=== PATIENT | male | born 1965 | race Caucasian/White ===

== ENCOUNTER 2019-01-28 07:40 | Emergency (ER) | payer MEDICAID, MEDICARE ==
--- NOTE | 2019-01-28 07:52 | EDM.PDOC ---
ED HPI GENERAL MEDICAL PROBLEM - General Chief Complaint: Neuro Symptoms/Deficits Stated Complaint: Fall; Left side weakness/deficit Time Seen by Provider: 01/28/19 07:40 Source of Information: Reports: EMS Notes Reviewed, Family, RN, RN Notes Reviewed - History of Present Illness INITIAL COMMENTS - FREE TEXT/NARRATIVE: Patient is brought to the ED at [facility] via EMS for possible [place]. According to the patient's mother, patient when to bed around 10pm last night. She heard the patient around 6am this morning in the bathroom and thought she heard the patient fall. He attempted to go outside to the [facility] to smoke, when he fell again, she then called EMS. Upon EMS arrival, patient was laying on the cough. They were told by the patient's mother he fell probably 3 times. IV was started. Arrival to ER, patient's left side was very non-purposeful. He was able to answer with one word, but very garble speech. Completely unable to move left side. Severe right gaze. Move left side ok. Unable to lift right leg or right arm. No hand grasp right side. Normal hand grasp left side. C-collar in place upon arrival. Does say yes when asked if having pain, but unable to verbalized where. See NIH documentation. Onset: Today Onset Date: 01/28/19 Onset Time: 06:00 - Related Data Allergies Allergy/AdvReac Type Severity Reaction Status Date / Time Unable to Assess Allergy Unverified 01/28/19 08:29 Home Meds: Home Meds . [Unable to Verify Home Med List] 01/28/19 [History] ED ROS GENERAL - Review of Systems Review Of Systems: Unable To Obtain ED EXAM, NEURO - Physical Exam Exam: See Below (See NIH document) Exam Limited By: Physical Impairment General Appearance: Alert, No Apparent Distress Eye Exam: Bilateral Eye: Other (forced right gaze; slow reaction 2mm) Ears: Normal External Exam, Normal Canal, Normal TMs Nose: Normal Inspection Throat/Mouth: Normal Inspection, Normal Oropharynx, No Airway Compromise Head Exam: Atraumatic, Normocephalic Neck: Supple Respiratory/Chest: No Respiratory Distress, Lungs Clear, Normal Breath Sounds Cardiovascular: Normal Peripheral Pulses, Regular Rate, Rhythm GI/Abdominal: Normal Bowel Sounds, Soft, Non-Tender Neurological: No Response to Pain (Left side), Abnormal Finger to Nose, Abnormal Light Touch, Abnormal Motor, Abnormal Pin Prick, Abn 2 Pt Discrimination, Straight Leg Raise (L) (ok) Skin Exam: Warm, Dry, Intact, Normal Color EKG INTERPRETATION EKG Date: 01/28/19 Time: 08:14 Rhythm: NSR Rate (Beats/Min): 64 [place]: Normal P-Wave: Present QRS: Normal ST-T: Normal QT: Normal NC/PQ Interval: 0.17 Comparison: NA - No Prior EKG EKG Interpretation Comments: 1. NSR *Q Meaningful Use (ADM) - VTE *Q VTE Mechanical Contraindications *Q: At Risk for Falls Course - Orders/Labs/Meds Orders: Active Orders 24 hr Category Date Time Status EKG 12 Lead [EKG Documentation Completion] [RC] STAT Care 01/28/19 08:12 Active Cervical Spine wo Cont [CT] Stat Exams 01/28/19 07:53 Taken Head wo Cont [CT] Stat Exams 01/28/19 07:53 Taken COMPREHENSIVE METABOLIC PN,CMP [CHEM] Stat Lab 01/28/19 07:52 Ordered MAGNESIUM [CHEM] Stat Lab 01/28/19 07:52 Ordered Sodium Chloride 0.9% [Normal Saline] 1,000 ml Med 01/28/19 07:54 Active IV ONETIME Sodium Chloride 0.9% [Saline Flush] Med 01/28/19 07:54 Active 10 ml FLUSH ASDIRECTED PRN hydrALAZINE [Apresoline] Med 01/28/19 08:33 Once 10 mg IVPUSH ONETIME ONE Peripheral IV Insertion Adult [OM.PC] Routine Oth 01/28/19 07:54 Ordered Medication Orders Hydralazine HCl (Apresoline) 10 mg IVPUSH ONETIME ONE Stop: 01/28/19 08:34 Sodium Chloride (Normal Saline) 1,000 mls @ 999 mls/hr IV ONETIME ONE Stop: 01/28/19 08:54 Last Admin: 01/28/19 08:33 Dose: 999 mls/hr Sodium Chloride (Saline Flush) 10 ml FLUSH ASDIRECTED PRN PRN Reason: Keep Vein Open Labs: Laboratory Tests 01/28/19 01/28/19 Range/Units 08:07 08:07 WBC 9.0 (4.0-10.0) x10^3/uL RBC 4.68 (4.5-6.0) x10^6/uL Hgb 14.9 (14.0-18.0) g/dL Hct 43.1 (40.0-52.0) % MCV 92.1 (78.0-93.0) fL MCH 31.8 (26.0-32.0) pg MCHC 34.6 (32.0-36.0) g/dL RDW Coeff of Stacy 12.8 (10.0-15.0) % Plt Count 189 (130-400) x10^3/uL Neut % (Auto) 76.1 (50.0-80.0) % Lymph % (Auto) 15.8 L (25.0-50.0) % [place] % (Auto) 5.4 (2.0-11.0) % Eos % (Auto) 2.3 (0.0-4.0) % Baso % (Auto) 0.4 (0.2-1.2) % PT 10.6 (10.0-12.8) SEC INR 0.9 L (2.0-3.5) Meds: Medications Generic Name Dose Route Start Last Admin Trade Name Freq PRN Reason Stop Dose Admin Hydralazine HCl 10 mg 01/28/19 08:33 Apresoline IVPUSH 01/28/19 08:34 ONETIME ONE Sodium Chloride 1,000 mls @ 999 mls/hr 01/28/19 07:54 01/28/19 08:33 Normal Saline IV 01/28/19 08:54 999 mls/hr ONETIME ONE Administration Sodium Chloride 10 ml 01/28/19 07:54 Saline Flush FLUSH ASDIRECTED PRN Keep Vein Open Departure - Departure Time of Disposition: 08:35 Disposition: DC/Tfer to Acute Hospital 02 Clinical Impression: CVA (cerebral vascular accident) Qualifiers: CVA mechanism: unspecified Qualified Code(s): I63.9 - Cerebral infarction, unspecified - Discharge Information *PRESCRIPTION DRUG MONITORING PROGRAM REVIEWED*: Not Applicable *COPY OF PRESCRIPTION DRUG MONITORING REPORT IN PATIENT ETHAN: Not Applicable Forms: Interfacility Transfer [facility] ED Communication - ED Communication Date/Time Date: 01/28/19 Time Called: 08:20 - Discussed Case With (1) Discussed Case With (1): Outpatient Provider (Dr. Jackson, Neuro) - Discussed Case With (2) Discussed Case With (2): Admitting Provider (Dr. Freedman) - Conversation Summary Admitting Provider Agreed to Patient's Admission: Yes - Problem List Review Problem List Initiated/Reviewed/Updated: Yes - My Orders Last 24 Hours: My Active Orders 01/28/19 07:52 COMPREHENSIVE METABOLIC PN,CMP [CHEM] Stat MAGNESIUM [CHEM] Stat 01/28/19 07:53 Cervical Spine wo Cont [CT] Stat Head wo Cont [CT] Stat 01/28/19 07:54 Sodium Chloride 0.9% [Normal Saline] 1,000 ml IV ONETIME Sodium Chloride 0.9% [Saline Flush] 10 ml FLUSH ASDIRECTED PRN Peripheral IV Insertion Adult [OM.PC] Routine 01/28/19 08:12 EKG 12 Lead [EKG Documentation Completion] [RC] STAT 01/28/19 08:33 hydrALAZINE [Apresoline] 10 mg IVPUSH ONETIME ONE - Assessment/Plan Last 24 Hours: My Active Orders 01/28/19 07:52 COMPREHENSIVE METABOLIC PN,CMP [CHEM] Stat MAGNESIUM [CHEM] Stat 01/28/19 07:53 Cervical Spine wo Cont [CT] Stat Head wo Cont [CT] Stat 01/28/19 07:54 Sodium Chloride 0.9% [Normal Saline] 1,000 ml IV ONETIME Sodium Chloride 0.9% [Saline Flush] 10 ml FLUSH ASDIRECTED PRN Peripheral IV Insertion Adult [OM.PC] Routine 01/28/19 08:12 EKG 12 Lead [EKG Documentation Completion] [RC] STAT 01/28/19 08:33 hydrALAZINE [Apresoline] 10 mg IVPUSH ONETIME ONE Assessment:: CVA Plan: Case discussed with Dr. Jackson and Dr. Freedman. Patient will be transferred to [facility]. Patient will be sent ALS ground. Mother and patient aware.
[2019-01-28] MEDS ORDERED: Sodium Chloride 0.9% 1,000 ML IV ONE (07:54)
[2019-01-28] MEDS ORDERED: Sodium Chloride 0.9% 10 ML Syringe FLUSH PRN (07:54)
[2019-01-28] MEDS ORDERED: hydrALAZINE 20 MG/ML SDV IVPUSH ONE (08:33)
[2019-01-28 08:35] LABS: ANION GAP 13.9 mmol/L (10-20); CHLORIDE,CL 105 mmol/L (98-107); SODIUM,NA 140 mmol/L (136-145)
--- NOTE | 2019-01-28 08:35 | CT ---
[id number] CT/CT Cervical Spine WO IV EXAM: NONCONTRAST CERVICAL SPINE CT INDICATION: Fall, possible cerebrovascular accident and left-sided collecting. COMPARISON: None. DISCUSSION: The vertebral bodies are normal in height and alignment. No fracture or suspicious osseous lesion is identified. Moderate degenerative disc disease C5-C6 through T1-T2 with milder changes at the remaining disc levels. Mild to moderate facet degeneration scattered throughout the cervical spine. IMPRESSION: 1. No evidence of acute cervical spine trauma. 2. Mild to moderate cervical spondylosis. Neo Carter MD 01/28/19 0833 Thank you for allowing us to participate in the care of your patient.
--- NOTE | 2019-01-28 08:42 | CT ---
[id number] CT/CT Head Stroke Protocol EXAM: NONCONTRAST HEAD CT INDICATION: Left-sided neglect with concern for cerebrovascular accident. COMPARISON: None. DISCUSSION: Overlying the left frontoparietal cerebral convexity there is a CSF density subdural collection measuring up to 13 mm in thickness that could represent a hygroma or chronic subdural hematoma. No acute hemorrhage is identified. There is up to 6 mm of rightward midline shift and mild effacement of the underlying sulci. Mild to moderate generalized atrophy. Appearing to arise from the right internal carotid artery bifurcation there is a 23 x 18 x 17 mm hyperdense oval mass consistent with an aneurysm. No acute territorial infarct or hydrocephalus. Mucosal retention cyst within the right maxillary sinus. IMPRESSION: 1. 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 2. 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 This results in mild effacement of the underlying sulci and about 6 mm of rightward midline shift. Neo Carter MD 01/28/19 0841 Thank you for allowing us to participate in the care of your patient.
== END 2019-01-28 08:42 | disposition short-term general hospital (02) ==
LOC: VM.ED 07:40
DX: I63.9 Cerebral infarction, unspecified (principal)
CPT/HCPCS: 70450; 72125; 80053; 83735; 85025; 85610; 93005; 93010; 96374; 99285-GF; 99291-25; J0360; J7030

== ENCOUNTER 2019-02-02 13:07 | Inpatient (IN) | payer MEDICARE ==
[2019-02-02] MEDS ORDERED: Ondansetron 4 MG Tab.DIS PO PRN (14:32)
[2019-02-02] MEDS ORDERED: Aluminum Hydroxide/Magnesium Hydroxide/Simethicone Susp 30 ML Cup PO PRN (14:32)
--- NOTE | 2019-02-02 14:48 | PCM.HP ---
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 Upon arrival to the ER, the patient had complete left side neglect, right eye gaze, and not able to speak. The patient was found to have a 2.2cm ICA aneurysm on CT. Patient was immediately transferred to [facility] in [place] for definitive treatment. Patient did not require any surgical intervention. Blood pressure had been an issue, so patient was started on Lisinopril and Amlodipine. Blood pressures seem to normalize. Patient was also started on atorvastatin for lipid control. Patient apparently did well during his hospital stay. Patient has some residual effects. Symptom Onset Date: 01/28/19 - Related Data Allergies/Adverse Reactions: Allergies Allergy/AdvReac Type Severity Reaction Status Date / Time Penicillins Allergy Unknown Other Verified 02/02/19 13:39 Home Medications: Home Meds Clopidogrel [Plavix] 75 mg PO DAILY 02/02/19 [History] Lisinopril 5 mg PO DAILY 02/02/19 [History] Nicotine [Nicotine Patch] 21 mg TD DAILY 02/02/19 [History] amLODIPine [Norvasc] 10 mg PO DAILY 02/02/19 [History] atorvaSTATin [Lipitor] 40 mg PO BEDTIME 02/02/19 [History] H&P Review of Systems - Review of Systems: Review Of Systems: See Below General: Denies: Fever, Chills Pulmonary: Denies: Shortness of Breath, Cough Cardiovascular: Denies: Chest Pain, Palpitations Gastrointestinal: Denies: Abdominal Pain, Nausea, Vomiting Skin: Reports: No Symptoms Neurological: Reports: Pre-Existing Deficit (Recent CVA 01/28/2019), Trouble Speaking, Difficulty Walking, Weakness, Gait Disturbance Exam - Exam Exam: See Below - Exam Quality Assessment: DVT Prophylaxis (on Plavix) General: Alert, Oriented, Cooperative Lungs: Clear to Auscultation, Normal Respiratory Effort Cardiovascular: Regular Rate, Regular Rhythm, Normal S1, Normal S2 GI/Abdominal Exam: Normal Bowel Sounds, Soft, Non-Tender Extremities: Normal Inspection Peripheral Pulses: 2+: Radial (L), Radial (R) Skin: Warm, Dry, Intact Neuro Extensive - Mental Status: Alert, Disorientation to Time, Opens Eyes to Commands Neuro Extensive - Motor, Sensory, Reflexes: Ataxia (Left crosses midline), Receptive Aphasia, Expressive Aphasia, Hemeplagia (L), Abnormal Finger to Nose, Abnormal Motor *Q Meaningful Use (ADM) - VTE *Q VTE Mechanical Contraindications *Q: At Risk for Falls - Problem List (1) CVA (cerebral vascular accident) SNOMED Code(s): 244450746 ICD Code: I63.9 - CEREBRAL INFARCTION, UNSPECIFIED Status: Acute Priority : High Current Visit: Yes Onset Date: ~01/28/19 Qualifiers: CVA mechanism: unspecified Qualified Code(s): I63.9 - Cerebral infarction, unspecified (2) Jose-neglect of left side SNOMED Code(s): 698086908 ICD Code: R41.4 - NEUROLOGIC NEGLECT SYNDROME Status: Acute Priority: High Current Visit: Yes Onset Date: ~01/28/19 (3) Spatial neglect SNOMED Code(s): 656927521, 459958697, 976787913 ICD Code: R41.89 - OTH SYMPTOMS AND SIGNS W COGNITIVE FUNCTIONS AND AWARENESS Status: Acute Priority: High Current Visit: Yes Onset Date: ~ 01/28/19 (4) Dysphagia SNOMED Code(s): 13620926, 565523065 ICD Code: R13.10 - DYSPHAGIA, UNSPECIFIED Status: Acute Priority: High Current Visit: Yes Onset Date: ~01/28/19 Qualifiers: Dysphagia type: unspecified Qualified Code(s): R13.10 - Dysphagia, unspecified (5) Expressive aphasia SNOMED Code(s): 312022612 ICD Code: R47.01 - APHASIA Status: Acute Priority: High Current Visit: Yes Onset Date: ~01/28/19 (6) Weakness SNOMED Code(s): 94626202 ICD Code: R53.1 - WEAKNESS Status: Acute Current Visit: Yes (7) Physical deconditioning SNOMED Code(s): 75339864175631 ICD Code: R53.81 - OTHER MALAISE Status: Acute Priority: Medium Current Visit: Yes (8) Essential hypertension SNOMED Code(s): 27591209 ICD Code: I10 - ESSENTIAL (PRIMARY) HYPERTENSION Status: Chronic Priority : Medium Current Visit: No (9) Mixed hyperlipidemia SNOMED Code(s): 283445640 ICD Code: E78.2 - MIXED HYPERLIPIDEMIA Status: Chronic Priority: Medium Current Visit: No (10) History of traumatic brain injury SNOMED Code(s): 18585291303075, 39072771122755 ICD Code: Z87.820 - PERSONAL HISTORY OF TRAUMATIC BRAIN INJURY Status: Chronic Current Visit: No (11) History of cerebral aneurysm repair SNOMED Code(s): 881303619 ICD Code: Z98.890 - OTHER SPECIFIED POSTPROCEDURAL STATES; Z86.79 - PERSONAL HISTORY OF OTHER DISEASES OF THE CIRCULATORY SYSTEM Status: Chronic Current Visit: No Problem List Initiated/Reviewed/Updated: Yes Orders Last 24hrs: Active Orders 24 hr Category Date Time Status Patient Status [ADT] Routine ADT 02/02/19 14:33 Active Antiembolic Devices [RC] PER UNIT ROUTINE Care 02/02/19 14:36 Active Communication Order [RC] DAILY Care 02/02/19 13:59 Active Height and Weight [RC] PER UNIT ROUTINE Care 02/02/19 14:34 Active Intake and Output [RC] 06,18 Care 02/02/19 14:34 Active May Shower [RC] SA Care 02/02/19 14:32 Active Oxygen Therapy [RC] PRN Care 02/02/19 14:33 Active Up to Chair [RC] 0730,1130,1730 Care 02/02/19 14:32 Active Vital Signs [RC] PER UNIT ROUTINE Care 02/02/19 14:33 Active Consult to Case Management/Stamps Or Coins Salesperson [CONS] Cons 02/02/19 14:32 Active Routine OT Evaluation and Treatment [CONS] Routine Cons 02/02/19 13:32 Active PT Evaluation and Treatment [CONS] Routine Cons 02/02/19 13:32 Active EAR MUFF ASSEMBLER Evaluation and Treatment [CONS] Routine Cons 02/02/19 13:32 Active Heart Healthy Diet [DIET] Diet 02/02/19 Dinner Active Acetaminophen [Tylenol] Med 02/02/19 14:32 Ordered 650 mg PO Q4H PRN Alum Hydrox/Mag Hydrox/Simeth [Mag-Al Plus] Med 02/02/19 14:32 Ordered 30 ml PO Q4H PRN Clopidogrel [Plavix] Med 02/03/19 08:00 Active 75 mg PO DAILY Lisinopril [Prinivil] Med 02/03/19 08:00 Active 5 mg PO DAILY Nicotine [Habitrol] Med 02/03/19 08:00 Active 21 mg TOP DAILY Ondansetron [Zofran ODT] Med 02/02/19 14:32 Ordered 4 mg PO Q6H PRN Polyethylene Glycol 3350 [MiraLAX] Med 02/02/19 14:32 Ordered 17 gm PO DAILY PRN Remove Patch Med 02/02/19 20:00 Active 1 ea TRDERM BEDTIME amLODIPine [Norvasc] Med 02/03/19 08:00 Active 10 mg PO DAILY atorvaSTATin [Lipitor] Med 02/02/19 20:00 Active 40 mg PO BEDTIME Antiembolic Hose [OM.PC] Routine Oth 02/02/19 14:32 Ordered Patient May [OM.PC] Click To Edit Oth 02/02/19 14:32 Ordered Code Status [Resuscitation Status] Routine Resus Stat 02/02/19 13:32 Ordered Medication Orders Acetaminophen (Tylenol) 650 mg PO Q4H PRN PRN Reason: Pain (Mild 1-3)/fever Al Hydroxide/Mg Hydroxide (Mag-Al Plus) 30 ml PO Q4H PRN PRN Reason: Nausea Amlodipine Besylate (Norvasc) 10 mg PO DAILY JOSE Atorvastatin Calcium (Lipitor) 40 mg PO BEDTIME [facility] Stop: 02/27/19 20:01 Clopidogrel Bisulfate (Plavix) 75 mg PO DAILY [facility] Stop: 02/19/19 08:01 Lisinopril (Prinivil) 5 mg PO DAILY [facility] Miscellaneous Information (Remove Patch) 1 ea TRDERM BEDTIME [facility] Stop: 02/27/19 20:01 Nicotine (Habitrol) 21 mg TOP DAILY [facility] Stop: 02/27/19 08:01 Ondansetron HCl (Zofran Odt) 4 mg PO Q6H PRN PRN Reason: nausea, able to take PO Polyethylene Glycol (Miralax) 17 gm PO DAILY PRN PRN Reason: Constipation Assessment/Plan Comment:: 53 yo male with a past medical history of HTN, high cholesterol, TBI, and cerebral aneurysm is admitted to the Swing Bed unit at [facility] for a diagnosis of CVA, HTN, High cholesterol, dysphagia, receptive/expressive aphagia , left neglect, spacial neglect. Will continue same discharge medication from [facility]. Consult PT/OT and Speech. Patient needs to be up for all meals. Will contact Neuro for blood pressure parameters. Patient is a full code. Patient does wish to be transferred to a higher level of care should the need arise. Patient very impulsive, so will use bed alarm. Will do nectar thick liquids for now until seen by Speech. I anticipate a very long stay for this patient on Swing Bed. Unclear at time of this admission the disposition, home vs. [facility]. Will work closely with therapies. Continue with Lisinopril and Amlodipine for now. ASA for 21 days, then stop. Continue Plavix lifelong. May discontinue Nicotine patch. No labs are due at this time. NOTE: This patient was seen and examined by me as an [facility] provider.
[2019-02-02] MEDS: atorvaSTATin 40 MG Tab PO SCH (20:40)
[2019-02-03] MEDS: amLODIPine 10 MG Tab PO SCH (08:16)
[2019-02-03] MEDS: Clopidogrel 75 MG Tab PO SCH (08:17)
[2019-02-03] MEDS: Nicotine 21 MG/24 Hr Patch TOP SCH (08:17)
[2019-02-03] MEDS: Lisinopril 5 MG Tab PO SCH (08:17)
[2019-02-03] MEDS: atorvaSTATin 40 MG Tab PO SCH (19:43)
[2019-02-04] MEDS: Nicotine 21 MG/24 Hr Patch TOP SCH (08:12)
[2019-02-04] MEDS: Clopidogrel 75 MG Tab PO SCH (08:12)
[2019-02-04] MEDS: amLODIPine 10 MG Tab PO SCH (08:13)
[2019-02-04] MEDS: Lisinopril 5 MG Tab PO SCH (08:13)
[2019-02-04] MEDS: atorvaSTATin 40 MG Tab PO SCH (19:52)
[2019-02-04] MEDS: Polyethylene Glycol 3350 Powder 17 GM Packet PO PRN (21:46)
[2019-02-05] MEDS: Nicotine 21 MG/24 Hr Patch TOP SCH (08:30)
[2019-02-05] MEDS: Lisinopril 5 MG Tab PO SCH (08:31)
[2019-02-05] MEDS: Clopidogrel 75 MG Tab PO SCH (08:31)
[2019-02-05] MEDS: amLODIPine 10 MG Tab PO SCH (08:31)
[2019-02-05] MEDS: atorvaSTATin 40 MG Tab PO SCH (20:39)
[2019-02-06] MEDS: Nicotine 21 MG/24 Hr Patch TOP SCH (07:49)
[2019-02-06] MEDS: Clopidogrel 75 MG Tab PO SCH (07:49)
[2019-02-06] MEDS: Polyethylene Glycol 3350 Powder 17 GM Packet PO PRN (07:49)
[2019-02-06] MEDS: amLODIPine 10 MG Tab PO SCH (07:49)
[2019-02-06] MEDS: Lisinopril 5 MG Tab PO SCH (07:49)
[2019-02-06] MEDS: atorvaSTATin 40 MG Tab PO SCH (20:26)
[2019-02-07] MEDS: amLODIPine 10 MG Tab PO SCH (08:16)
[2019-02-07] MEDS: Aspirin 81 MG Tab.EC PO SCH (08:16)
[2019-02-07] MEDS: Clopidogrel 75 MG Tab PO SCH (08:17)
[2019-02-07] MEDS: Lisinopril 5 MG Tab PO SCH (08:17)
[2019-02-07] MEDS: Nicotine 21 MG/24 Hr Patch TOP SCH (08:17)
[2019-02-07] MEDS: Omeprazole 20 MG Cap.CR PO SCH (15:36)
[2019-02-07] MEDS: Polyethylene Glycol 3350 Powder 17 GM Packet PO PRN (15:36)
[2019-02-07] MEDS: Acetaminophen 325 MG Tab PO PRN (15:36)
[2019-02-07] MEDS ORDERED: Docusate Sodium 100 MG Cap PO PRN (18:08)
[2019-02-07] MEDS: atorvaSTATin 40 MG Tab PO SCH (20:19)
[2019-02-08] MEDS: Omeprazole 20 MG Cap.CR PO SCH (06:12)
[2019-02-08] MEDS: Lisinopril 5 MG Tab PO SCH (08:52)
[2019-02-08] MEDS: Clopidogrel 75 MG Tab PO SCH (08:52)
[2019-02-08] MEDS: Nicotine 21 MG/24 Hr Patch TOP SCH (08:52)
[2019-02-08] MEDS: Aspirin 81 MG Tab.EC PO SCH (08:52)
[2019-02-08] MEDS: amLODIPine 10 MG Tab PO SCH (08:52)
[2019-02-08] MEDS: Docusate Sodium 100 MG Cap PO SCH (19:07)
[2019-02-08] MEDS: atorvaSTATin 40 MG Tab PO SCH (19:07)
[2019-02-09] MEDS: Omeprazole 20 MG Cap.CR PO SCH (06:06)
[2019-02-09] MEDS: Lisinopril 5 MG Tab PO SCH (08:24)
[2019-02-09] MEDS: Nicotine 21 MG/24 Hr Patch TOP SCH (08:25)
[2019-02-09] MEDS: Clopidogrel 75 MG Tab PO SCH (08:25)
[2019-02-09] MEDS: Docusate Sodium 100 MG Cap PO SCH ×2 (08:25→20:06)
[2019-02-09] MEDS: Aspirin 81 MG Tab.EC PO SCH (08:25)
[2019-02-09] MEDS: amLODIPine 10 MG Tab PO SCH (08:25)
[2019-02-09] MEDS: atorvaSTATin 40 MG Tab PO SCH (20:06)
[2019-02-10] MEDS: Omeprazole 20 MG Cap.CR PO SCH (06:52)
[2019-02-10] MEDS: Lisinopril 5 MG Tab PO SCH (08:47)
[2019-02-10] MEDS: Aspirin 81 MG Tab.EC PO SCH (08:47)
[2019-02-10] MEDS: Clopidogrel 75 MG Tab PO SCH (08:48)
[2019-02-10] MEDS: amLODIPine 10 MG Tab PO SCH (08:48)
[2019-02-10] MEDS: Docusate Sodium 100 MG Cap PO SCH ×3 (08:48→19:05)
[2019-02-10] MEDS: Nicotine 21 MG/24 Hr Patch TOP SCH (08:49)
[2019-02-10] MEDS: atorvaSTATin 40 MG Tab PO SCH ×2 (18:46→19:05)
[2019-02-11] MEDS: Docusate Sodium 100 MG Cap PO SCH ×2 (08:04→20:54)
[2019-02-11] MEDS: Aspirin 81 MG Tab.EC PO SCH (08:04)
[2019-02-11] MEDS: Clopidogrel 75 MG Tab PO SCH (08:04)
[2019-02-11] MEDS: Nicotine 21 MG/24 Hr Patch TOP SCH (08:04)
[2019-02-11] MEDS: Omeprazole 20 MG Cap.CR PO SCH (08:04)
[2019-02-11] MEDS: Lisinopril 5 MG Tab PO SCH (08:05)
[2019-02-11] MEDS: amLODIPine 10 MG Tab PO SCH (08:05)
[2019-02-11] MEDS: atorvaSTATin 40 MG Tab PO SCH (20:54)
[2019-02-12] MEDS: Omeprazole 20 MG Cap.CR PO SCH (08:50)
[2019-02-12] MEDS: Clopidogrel 75 MG Tab PO SCH (08:50)
[2019-02-12] MEDS: Aspirin 81 MG Tab.EC PO SCH (08:51)
[2019-02-12] MEDS: Lisinopril 5 MG Tab PO SCH (08:51)
[2019-02-12] MEDS: Docusate Sodium 100 MG Cap PO SCH ×2 (08:51→20:24)
[2019-02-12] MEDS: Nicotine 21 MG/24 Hr Patch TOP SCH (08:51)
[2019-02-12] MEDS: amLODIPine 10 MG Tab PO SCH (08:51)
[2019-02-12] MEDS ORDERED: Barium Sulfate 98% Powder for Susp 340 GM Bottle ONE (09:30)
[2019-02-12] MEDS ORDERED: Barium Sulfate 60% w/w Esophageal Crm 454 GM Tube PO ONE (09:30)
--- NOTE | 2019-02-12 13:26 | CR ---
[id number] RAD/RAD Video Swallow Study EXAM: VIDEO SWALLOWING STUDY INDICATION: POST CVA. COMPARISON: None. DISCUSSION: Multiple consistencies of barium were administered orally under fluoroscopic observation. This was performed in conjunction with speech pathology, refer to their report for full details. IMPRESSION: 1. As above. Omid Morrow DO 02/12/19 1324 Thank you for allowing us to participate in the care of your patient.
[2019-02-12] MEDS: atorvaSTATin 40 MG Tab PO SCH (20:24)
[2019-02-13] MEDS: Omeprazole 20 MG Cap.CR PO SCH (07:27)
[2019-02-13] MEDS: Aspirin 81 MG Tab.EC PO SCH (07:55)
[2019-02-13] MEDS: amLODIPine 10 MG Tab PO SCH (07:55)
[2019-02-13] MEDS: Lisinopril 5 MG Tab PO SCH (07:55)
[2019-02-13] MEDS: Clopidogrel 75 MG Tab PO SCH (07:55)
[2019-02-13] MEDS: Nicotine 21 MG/24 Hr Patch TOP SCH (07:55)
[2019-02-13] MEDS: Docusate Sodium 100 MG Cap PO SCH ×2 (07:55→20:01)
[2019-02-13] MEDS: atorvaSTATin 40 MG Tab PO SCH (20:01)
[2019-02-14] MEDS: Aspirin 81 MG Tab.EC PO SCH (11:16)
[2019-02-14] MEDS: Clopidogrel 75 MG Tab PO SCH (11:17)
[2019-02-14] MEDS: Lisinopril 5 MG Tab PO SCH (11:17)
[2019-02-14] MEDS: Docusate Sodium 100 MG Cap PO SCH (20:40)
[2019-02-14] MEDS: atorvaSTATin 40 MG Tab PO SCH (20:40)
[2019-02-15] MEDS: Omeprazole 20 MG Cap.CR PO SCH (06:45)
[2019-02-15] MEDS: Lisinopril 5 MG Tab PO SCH (09:40)
[2019-02-15] MEDS: Clopidogrel 75 MG Tab PO SCH (09:40)
[2019-02-15] MEDS: Aspirin 81 MG Tab.EC PO SCH (09:40)
[2019-02-15] MEDS: amLODIPine 10 MG Tab PO SCH (09:41)
[2019-02-15] MEDS: Docusate Sodium 100 MG Cap PO SCH ×2 (09:43→20:24)
[2019-02-15] MEDS: Nicotine 21 MG/24 Hr Patch TOP SCH (09:43)
[2019-02-15] MEDS: atorvaSTATin 40 MG Tab PO SCH (20:24)
[2019-02-16] MEDS: Omeprazole 20 MG Cap.CR PO SCH (06:10)
[2019-02-16] MEDS: Polyethylene Glycol 3350 Powder 17 GM Packet PO PRN (08:41)
[2019-02-16] MEDS: Aspirin 81 MG Tab.EC PO SCH (08:42)
[2019-02-16] MEDS: Clopidogrel 75 MG Tab PO SCH (08:42)
[2019-02-16] MEDS: Lisinopril 5 MG Tab PO SCH (08:42)
[2019-02-16] MEDS: Acetaminophen 325 MG Tab PO PRN (08:42)
[2019-02-16] MEDS: amLODIPine 10 MG Tab PO SCH (08:42)
[2019-02-16] MEDS: Nicotine 21 MG/24 Hr Patch TOP SCH (08:42)
[2019-02-16] MEDS: Docusate Sodium 100 MG Cap PO SCH ×2 (08:42→19:19)
[2019-02-16] MEDS: atorvaSTATin 40 MG Tab PO SCH (19:19)
[2019-02-17] MEDS: Omeprazole 20 MG Cap.CR PO SCH (06:08)
[2019-02-17] MEDS: Nicotine 21 MG/24 Hr Patch TOP SCH (09:40)
[2019-02-17] MEDS: Docusate Sodium 100 MG Cap PO SCH ×2 (09:43→19:24)
[2019-02-17] MEDS: amLODIPine 10 MG Tab PO SCH (09:43)
[2019-02-17] MEDS: Lisinopril 5 MG Tab PO SCH (09:44)
[2019-02-17] MEDS: Aspirin 81 MG Tab.EC PO SCH (09:44)
[2019-02-17] MEDS: Clopidogrel 75 MG Tab PO SCH (09:44)
[2019-02-17] MEDS: atorvaSTATin 40 MG Tab PO SCH (19:24)
[2019-02-18] MEDS: Omeprazole 20 MG Cap.CR PO SCH (06:13)
[2019-02-18] MEDS: Aspirin 81 MG Tab.EC PO SCH (07:56)
[2019-02-18] MEDS: Clopidogrel 75 MG Tab PO SCH (07:56)
[2019-02-18] MEDS: Docusate Sodium 100 MG Cap PO SCH ×2 (07:57→19:43)
[2019-02-18] MEDS: amLODIPine 10 MG Tab PO SCH (07:58)
[2019-02-18] MEDS: Lisinopril 5 MG Tab PO SCH (07:58)
[2019-02-18] MEDS: atorvaSTATin 40 MG Tab PO SCH (19:43)
[2019-02-19] MEDS: Omeprazole 20 MG Cap.CR PO SCH (06:17)
[2019-02-19] MEDS: Aspirin 81 MG Tab.EC PO SCH (07:43)
[2019-02-19] MEDS: Docusate Sodium 100 MG Cap PO SCH ×2 (07:43→19:40)
[2019-02-19] MEDS: Clopidogrel 75 MG Tab PO SCH (07:43)
[2019-02-19] MEDS: amLODIPine 10 MG Tab PO SCH (07:43)
[2019-02-19] MEDS: Lisinopril 5 MG Tab PO SCH (07:44)
--- NOTE | 2019-02-19 18:21 | PCM.DCSUM1 ---
Discharge Summary - Hospital Course HPI Initial Comments: NOTE: This patient was seen by examined by me as an [facility] provider Patient originally presented to the ER at [facility] via EMS electronic service technician of January 28, 2019 after he had fallen at home 3 separate times. Upon arrival to the ER, the patient had complete left side neglect, right eye gaze, and not able to speak. The patient was found to have a 2.2cm ICA aneurysm on CT. Patient was immediately transferred to [facility] in [place] for definitive treatment. Patient did not require any surgical intervention. Blood pressure had been an issue, so patient was started on Lisinopril and Amlodipine. Blood pressures seem to normalize. Patient was also started on atorvastatin for lipid control. Patient apparently did well during his hospital stay. Patient has some residual effects. Diagnosis: Stroke: Yes Modified Dmitriy Scale: Mod.Sev.Disability ;Unable to Walk/Attend Bodily Needs W/ O Assistance Modified Columbus Scale Score: 4 - Discharge Data Discharge Date: 02/20/19 Discharge Disposition: DC/Tfer to Acute Hospital 02 Condition: Good - Discharge Diagnosis/Problem(s) (1) CVA (cerebral vascular accident) SNOMED Code(s): 320016723 ICD Code: I63.9 - CEREBRAL INFARCTION, UNSPECIFIED Status: Acute Priority : High Current Visit: Yes Onset Date: ~01/28/19 Qualifiers: CVA mechanism: unspecified Qualified Code(s): I63.9 - Cerebral infarction, unspecified (2) Jose-neglect of left side SNOMED Code(s): 894338784 ICD Code: R41.4 - NEUROLOGIC NEGLECT SYNDROME Status: Acute Priority: High Current Visit: Yes Onset Date: ~01/28/19 (3) Spatial neglect SNOMED Code(s): 914161588, 513419144, 059609284 ICD Code: R41.89 - OTH SYMPTOMS AND SIGNS W COGNITIVE FUNCTIONS AND AWARENESS Status: Acute Priority: High Current Visit: Yes Onset Date: ~ 01/28/19 (4) Dysphagia SNOMED Code(s): 27686345, 818410289 ICD Code: R13.10 - DYSPHAGIA, UNSPECIFIED Status: Acute Priority: High Current Visit: Yes Onset Date: ~01/28/19 Qualifiers: Dysphagia type: unspecified Qualified Code(s): R13.10 - Dysphagia, unspecified (5) Expressive aphasia SNOMED Code(s): 568431595, 909565698 ICD Code: R47.01 - APHASIA Status: Acute Priority: High Current Visit: Yes Onset Date: ~01/28/19 (6) Weakness SNOMED Code(s): 74957649 ICD Code: R53.1 - WEAKNESS Status: Acute Current Visit: Yes (7) Physical deconditioning SNOMED Code(s): 41291784964381 ICD Code: R53.81 - OTHER MALAISE Status: Acute Priority: Medium Current Visit: Yes (8) Essential hypertension SNOMED Code(s): 45527725 ICD Code: I10 - ESSENTIAL (PRIMARY) HYPERTENSION Status: Chronic Priority : Medium Current Visit: No (9) Mixed hyperlipidemia SNOMED Code(s): 304433814 ICD Code: E78.2 - MIXED HYPERLIPIDEMIA Status: Chronic Priority: Medium Current Visit: No (10) History of traumatic brain injury SNOMED Code(s): 47821984880950, 74976639083548 ICD Code: Z87.820 - PERSONAL HISTORY OF TRAUMATIC BRAIN INJURY Status: Chronic Current Visit: No (11) History of cerebral aneurysm repair SNOMED Code(s): 133133753 ICD Code: Z98.890 - OTHER SPECIFIED POSTPROCEDURAL STATES; Z86.79 - PERSONAL HISTORY OF OTHER DISEASES OF THE CIRCULATORY SYSTEM Status: Chronic Current Visit: No - Patient Summary/Data Operative Procedure(s) Performed: None Consults: Consultations 02/02/19 13:32 OT Evaluation and Treatment [CONS] Routine PT Evaluation and Treatment [CONS] Routine SPOT SPRAYER Evaluation and Treatment [CONS] Routine 02/02/19 14:32 Consult to Case Management/Crop Picker [CONS] Routine Labs Pending at D/C: None Recommended Follow-up Testing/Procedures: TBD Planned Operative Procedure(s) after DC: Cerebral Coiling at [facility] on 02/20/2019 Hospital Course: Patient seems to be progressing well with respective therapies. Blood pressure has been well controlled on current medications. Last day of Plavix 02/19/2019 per Neurology. Patient will continue on ASA lifelong. Patient has not had any issues with BM's or urination. He is participating in therapies without problems or resistance. Patient will have an upcoming appointment with Dr. Altman from [facility] for consideration of being admitted to a skilled nursing stroke rehab facility. - Patient Instructions Diet, Other: Per Speech recommendations Activity, Other: Per PT/OT recommendations Driving: Do Not Drive Showering/Bathing: May Shower Notify Provider of: Fever, Increased Pain, Nausea and/or Vomiting - Discharge Plan *PRESCRIPTION DRUG MONITORING PROGRAM REVIEWED*: Not Applicable *COPY OF PRESCRIPTION DRUG MONITORING REPORT IN PATIENT ETHAN: Not Applicable Home Medications: Home Meds Lisinopril 5 mg PO DAILY 02/02/19 [History] amLODIPine [Norvasc] 10 mg PO DAILY 02/02/19 [History] atorvaSTATin [Lipitor] 40 mg PO BEDTIME 02/02/19 [History] Aspirin [Halfprin] 81 mg PO DAILY tab.ec 02/19/19 [Rx] Omeprazole 20 mg PO DAILY@0700 cap.cr 02/19/19 [Rx] Oxygen Therapy Mode: Room Air Patient Handouts: Cerebral Aneurysm, Speech-Language Therapy After a Stroke Referrals: Polo Lang, [employer] ARCHITECT [Primary Care Provider] - - Discharge Summary/Plan Comment DC Time >30 min.: Yes Discharge Summary/Plan Comment: Patient will be discharged to [facility] on 02/20/2019 and admitted for a Cerebral coiling procedure. It is expected the patient will only need to stay overnight after procedure. Patient will be readmitted to [facility] upon return. - General Info Date of Service: 02/20/19 Admission Dx/Problem (Free Text: Admission Diagnosis/Problem Admission Diagnosis/Problem CVA, Cerebrovascular accident Left Upper/Lower extremity neglect Spacial Neglect Weakness Expressive aphasia/receptive aphasia Dysphagia Deconditioning Essential Hypertension Nicotine Dependence History of TBI History of Cerebral Aneurysm 2/2 to TBI Subjective Update: Patient is doing well. No complaints from nursing staff. Vitals remained well controlled. Functional Status: Reports: Pain Controlled, Tolerating Diet, Urinating. Denies : New Symptoms Numeric/FACES Score: 0 - Review of Systems General: Denies: Fever, Chills Pulmonary: Denies: Shortness of Breath, Cough Cardiovascular: Denies: Chest Pain, Palpitations Gastrointestinal: Denies: Abdominal Pain, Nausea, Vomiting Skin: Reports: No Symptoms Neurological: Reports: Pre-Existing Deficit (see admisson H&P) - Patient Data Vitals - Most Recent: Last Vital Signs Temp 36.9 C 02/19/19 15:06 Pulse 74 02/19/19 15:06 Resp 18 02/19/19 15:06 BP 116/72 02/19/19 15:06 Pulse Ox 98 02/19/19 15:06 Weight - Most Recent: 74.933 kg I&O - Last 24 hours: Intake & Output 02/19/19 02/19/19 02/19/19 06:59 14:59 22:59 Intake Total 780 Balance 780 Med Orders - Current: Current Medications Acetaminophen (Tylenol) 650 mg PO Q4H PRN PRN Reason: Pain (Mild 1-3)/fever Last Admin: 02/16/19 08:42 Dose: 650 mg Al Hydroxide/Mg Hydroxide (Mag-Al Plus) 30 ml PO Q4H PRN PRN Reason: Nausea Last Admin: 02/07/19 15:36 Dose: 30 ml Amlodipine Besylate (Norvasc) 10 mg PO DAILY [facility] Last Admin: 02/19/19 07:43 Dose: 10 mg Aspirin (Halfprin) 81 mg PO DAILY [facility] Last Admin: 02/19/19 07:43 Dose: 81 mg Atorvastatin Calcium (Lipitor) 40 mg PO BEDTIME [facility] Stop: 02/27/19 20:01 Last Admin: 02/18/19 19:43 Dose: 40 mg Docusate Sodium (Colace) 100 mg PO BID [facility] Last Admin: 02/19/19 07:43 Dose: 100 mg Lisinopril (Prinivil) 5 mg PO DAILY [facility] Last Admin: 02/19/19 07:44 Dose: 5 mg Omeprazole (Omeprazole) 20 mg PO DAILY@0700 [facility] Last Admin: 02/19/19 06:17 Dose: 20 mg Ondansetron HCl (Zofran Odt) 4 mg PO Q6H PRN PRN Reason: nausea, able to take PO Last Admin: 02/07/19 10:47 Dose: 4 mg Polyethylene Glycol (Miralax) 17 gm PO DAILY PRN PRN Reason: Constipation Last Admin: 02/16/19 08:41 Dose: 17 gm Discontinued Medications Barium Sulfate (E-Z-Hd) 340 gm .ROUTE .STK-MED ONE Stop: 02/12/19 09:31 Barium Sulfate (E-Z-Paste) 454 gm PO .STK-MED ONE Stop: 02/12/19 09:31 Clopidogrel Bisulfate (Plavix) 75 mg PO DAILY JOSE Stop: 02/19/19 08:01 Last Admin: 02/19/19 07:43 Dose: 75 mg Docusate Sodium (Colace) 100 mg PO BID PRN PRN Reason: Constipation Last Admin: 02/08/19 08:52 Dose: 100 mg Miscellaneous Information (Remove Patch) 1 ea TRDERM BEDTIME JOSE Stop: 02/27/19 20:01 Last Admin: 02/17/19 19:29 Dose: 1 ea Nicotine (Habitrol) 21 mg TOP DAILY JOSE Stop: 02/27/19 08:01 Last Admin: 02/17/19 09:40 Dose: 21 mg - Exam Quality Assessment: Denies: DVT Prophylaxis, Skin Breakdown General: Reports: Alert, Cooperative, No Acute Distress Lungs: Reports: Clear to Auscultation, Normal Respiratory Effort Cardiovascular: Reports: Regular Rate, Regular Rhythm GI/Abdominal Exam: Normal Bowel Sounds, Soft, Non-Tender Skin: Reports: Warm, Dry, Intact Neurological: Reports: No New Focal Deficit *Q Meaningful Use (DIS) - VTE *Q VTE Mechanical Contraindications *Q: At Risk for Falls
[2019-02-19] MEDS: atorvaSTATin 40 MG Tab PO SCH (19:40)
[2019-02-20] MEDS ORDERED: Clopidogrel 75 MG Tab PO SCH ×2 (04:30→08:00)
[2019-02-20] MEDS: Omeprazole 20 MG Cap.CR PO SCH ×2 (04:37→06:25)
[2019-02-20] MEDS: Aspirin 81 MG Tab.EC PO SCH (04:37)
[2019-02-20] MEDS: amLODIPine 10 MG Tab PO SCH (04:38)
== END 2019-02-20 05:50 | disposition short-term general hospital (02) | DRG 57 ==
LOC: VM.MS 13:58
PROVIDERS: ADMIT Nurse Practitioner Family; ATTEND Nurse Practitioner Family
DX: I69.391 Dysphagia following cerebral infarction (principal); R41.4 Neurologic neglect syndrome; I69.320 Aphasia following cerebral infarction; I69.312 Visuospatial deficit and spatial neglect following cerebral infarction; R13.10 Dysphagia, unspecified; I10 Essential (primary) hypertension; F17.210 Nicotine dependence, cigarettes, uncomplicated; Z88.0 Allergy status to penicillin; Z79.899 Other long term (current) drug therapy; E78.2 Mixed hyperlipidemia; Z87.820 Personal history of traumatic brain injury
CPT/HCPCS: 74230; 92526-GN; 92610-GN; 92611-GN; 96125; 97110-GP; 97112-GO; 97112-GP; 97116-GP; 97161-GP; 97165-GO; 97530-GP; 97535-GO; A9270-GY; G0515-GN

== ENCOUNTER 2019-09-16 18:33 | Emergency (ER) | payer MEDICARE, MEDICAID ==
--- NOTE | 2019-09-16 19:08 | EDM.PDOC ---
ED HPI GENERAL MEDICAL PROBLEM - General Chief Complaint: Gastrointestinal Problem Time Seen by Provider: 09/16/19 18:39 Source of Information: Reports: Patient History Limitations: Reports: No Limitations - History of Present Illness INITIAL COMMENTS - FREE TEXT/NARRATIVE: Pt. presents to ER from [facility] with abdominal pain, distention and fever. He has had abdominal pain for a week. He developed a temp this afternoon. He is a resident of the [facility] here in [place]. He has not been experiencing any shortness of breath or chest pain. No cough. He did vomit twice today. his appetite has been diminished. Staff states that the patient has been constipated this week, but did have 2 loose BMs after milk of mag this AM. Tmax 102 at the senior care. Pt. had a cerebral aneurysm that was successfully coiled in February 2019. Apparently he is a resident at the [facility] for nursing home rehab. Onset: Today Onset Date: 09/16/19 Location: Reports: Abdomen, Generalized Quality: Reports: Ache Severity: Moderate Associated Symptoms: Reports: Nausea/Vomiting Treatments [employer]: Reports: Acetaminophen - Related Data Allergies Allergy/AdvReac Type Severity Reaction Status Date / Time Penicillins Allergy Severe Anaphylactic Verified 09/16/19 18:50 Shock strawberry Allergy Severe Anaphylactic Verified 09/16/19 18:50 Shock Home Meds: Home Meds Lisinopril 5 mg PO DAILY 02/02/19 [History] amLODIPine [Norvasc] 10 mg PO DAILY 02/02/19 [History] atorvaSTATin [Lipitor] 40 mg PO BEDTIME 02/02/19 [History] Aspirin [Halfprin] 81 mg PO DAILY tab.ec 02/19/19 [Rx] Omeprazole 20 mg PO DAILY@0700 cap.cr 02/19/19 [Rx] Aa8/A-Carnitin/Grp/[place]/Hc126 [Gabadone Capsule] 1 each PO DAILY 09/16/19 [ History] Acetaminophen 650 mg PO Q4H PRN 09/16/19 [History] Bisacodyl 5 mg PO ASDIRECTED PRN 09/16/19 [History] Magnesium Hydroxide [Milk of Magnesia] 30 ml PO ASDIRECTED PRN 09/16/19 [History ] Methyl Salicylate/Menthol [Icy Hot] 35.4 gm TP Q4H PRN 09/16/19 [History] Ondansetron [Zofran] 4 mg PO DAILY PRN 09/16/19 [History] Simethicone [Gas-X] 2 cap PO ASDIRECTED PRN 09/16/19 [History] Trolamine Salicylate/Aloe Vera [Aspercreme 10%] 35.4 gm TP Q8H PRN 09/16/19 [ History] guaiFENesin [Cough Syrup] 10 ml PO Q4H PRN 09/16/19 [History] Past Medical History HEENT History: Reports: Impaired Vision Cardiovascular History: Reports: High Cholesterol, Hypertension Musculoskeletal History: Reports: Other (See Below) Other Musculoskeletal History: Left sided deficits from Right sided CVA Neurological History: Reports: Cerebral Aneurysms, CVA Other Neuro History: nontraumatic subdural hemorrhage - Infectious Disease History Infectious Disease History: Reports: Chicken Pox Social & Family History - Family History Family Medical History: Unobtainable - Tobacco Use Smoking Status *Q: Current Every Day Smoker Years of Tobacco use: 35 Packs/Tins Daily: 1 - Caffeine Use Caffeine Use: Reports: Coffee, Soda ED ROS GENERAL - Review of Systems Review Of Systems: See Below Constitutional: Reports: Fever, Malaise HEENT: Reports: No Symptoms Respiratory: Reports: No Symptoms Cardiovascular: Reports: No Symptoms Endocrine: Reports: No Symptoms GI/Abdominal: Reports: Abdominal Pain, Constipation, Nausea, Vomiting. Denies: Black Stool, Bloody Stool, Hematemesis, Hematochezia, Melena : Reports: No Symptoms Musculoskeletal: Reports: No Symptoms Skin: Reports: No Symptoms Neurological: Reports: No Symptoms Psychiatric: Reports: No Symptoms Hematologic/Lymphatic: Reports: No Symptoms Immunologic: Reports: No Symptoms ED EXAM, GENERAL - Physical Exam Exam: See Below Exam Limited By: No Limitations General Appearance: Alert, WD/WN, No Apparent Distress Eye Exam: Bilateral Eye: EOMI, Normal Fundi, Normal Inspection, PERRL Ears: Normal External Exam, Hearing Grossly Normal, Normal TMs Nose: Normal Inspection, Normal Mucosa, No Blood Throat/Mouth: Normal Inspection, Normal Lips, Normal Teeth, Normal Gums, Normal Oropharynx, Normal Voice, No Airway Compromise Head: Atraumatic, Normocephalic Neck: Normal Inspection, Supple, Non-Tender, Full Range of Motion Respiratory/Chest: No Respiratory Distress, Lungs Clear, Normal Breath Sounds, No Accessory Muscle Use, Chest Non-Tender Cardiovascular: Normal Peripheral Pulses, Regular Rate, Rhythm, No Edema, No Gallop, No JVD, No Murmur, No Rub GI/Abdominal: Soft, No Mass, Distended, Abnormal Bowel Sounds Back Exam: Normal Inspection, Full Range of Motion Extremities: Normal Inspection, Normal Range of Motion, Non-Tender, No Pedal Edema, Normal Capillary Refill Neurological: Alert, Oriented, CN II-XII Intact, Normal Cognition, Normal Gait, Normal Reflexes, No Motor/Sensory Deficits Psychiatric: Normal Affect, Normal Mood Skin Exam: Warm, Dry, Intact, Normal Color, No Rash Lymphatic: No Adenopathy Course - Vital Signs Last Recorded V/S: Last Vital Signs Temp 38.3 C H 09/16/19 21:37 Pulse 107 H 09/16/19 21:30 Resp 18 09/16/19 21:30 BP 138/88 09/16/19 21:30 Pulse Ox 94 L 09/16/19 21:30 - Orders/Labs/Meds Orders: Active Orders 24 hr Category Date Time Status Abdomen Pelvis w Cont [CT] Stat Exams 09/16/19 20:09 Taken CULTURE BLOOD [BC] Stat Lab 09/16/19 19:19 Received CULTURE BLOOD [BC] Stat Lab 09/16/19 19:25 Received CULTURE URINE [RM] Stat Lab 09/16/19 19:35 Received Sodium Chloride 0.9% [Normal Saline] 1,000 ml Med 09/16/19 21:03 Active IV .BOLUS Blood Culture x2 Reflex Set [OM.PC] Stat Oth 09/16/19 18:44 Ordered Medication Orders Sodium Chloride (Normal Saline) 1,000 mls @ 1,000 mls/hr IV .BOLUS ONE Stop: 09/16/19 22:02 Last Admin: 09/16/19 21:11 Dose: 1,000 mls/hr Labs: Laboratory Tests 09/16/19 09/16/19 09/16/19 Range/Units 19:25 19:25 19:25 WBC 19.8 H (4.0-10.0) x10^3/uL RBC 4.30 L (4.5-6.0) x10^6/uL Hgb 13.0 L D (14.0-18.0) g/dL Hct 37.8 L (40.0-52.0) % MCV 87.9 D (78.0-93.0) fL MCH 30.2 (26.0-32.0) pg MCHC 34.4 (32.0-36.0) g/dL RDW Coeff of Stacy 13.0 (10.0-15.0) % Plt Count 280 D (130-400) x10^3/uL Neut % (Auto) 89.4 H (50.0-80.0) % Lymph % (Auto) 3.8 L (25.0-50.0) % [place] % (Auto) 6.5 (2.0-11.0) % Eos % (Auto) 0.0 (0.0-4.0) % Baso % (Auto) 0.3 (0.2-1.2) % Sodium 133 L (136-145) mmol/L Potassium 4.4 (3.5-5.1) mmol/L Chloride 97 L (98-107) mmol/L Carbon Dioxide 23 (21-32) mmol/L Anion Gap 17.4 (10-20) mmol/L BUN 20 H (7-18) mg/dL Creatinine 1.6 H (0.70-1.30) mg/dL Est Cr Clr Drug Dosing TNP Estimated GFR (MDRD) 45 Glucose 140 H (74-106) mg/dL Lactic Acid 1.3 (0.4-2.0) mmol/L Calcium 8.9 (8.5-10.1) mg/dL Corrected Calcium 10.02 (8.5-10.1) mg/dL Magnesium 1.9 (1.8-2.4) mg/dL Total Bilirubin 1.3 H (0.2-1.0) mg/dL AST 10 L (15-37) U/L ALT 19 (16-63) U/L Alkaline Phosphatase 107 (46-116) U/L C-Reactive Protein 24.9 H (<=0.9) mg/dL NT-Pro-B Natriuret Pep 609 H (<=125) pg/mL Total Protein 7.2 (6.4-8.2) g/dL Albumin 2.6 L (3.4-5.0) g/dL Globulin 4.6 Albumin/Globulin Ratio 0.57 Urine Color (YELLOW) Urine Appearance (CLEAR) Urine pH (5.0-8.0) Ur Specific Avery Urine Protein (NEGATIVE) mg/dL Urine Glucose (UA) (NEGATIVE) mg/dL Urine Ketones (NEGATIVE) mg/dL Urine Occult Blood (NEGATIVE) Urine Nitrite (NEGATIVE) Urine Bilirubin (NEGATIVE) Urine Urobilinogen (0.2) EU/dL Ur Leukocyte Esterase (NEGATIVE) Urine RBC (NOT SEEN) /HPF Urine WBC (NOT SEEN) /HPF Ur Renal Epithelial Cell (NEGATIVE) /HPF Amorphous Sediment Urine Bacteria (NEGATIVE) /HPF Urine Mucus (NEGATIVE) /LPF 09/16/19 Range/Units 19:35 WBC (4.0-10.0) x10^3/uL RBC (4.5-6.0) x10^6/uL Hgb (14.0-18.0) g/dL Hct (40.0-52.0) % MCV (78.0-93.0) fL MCH (26.0-32.0) pg MCHC (32.0-36.0) g/dL RDW Coeff of Stacy (10.0-15.0) % Plt Count (130-400) x10^3/uL Neut % (Auto) (50.0-80.0) % Lymph % (Auto) (25.0-50.0) % [place] % (Auto) (2.0-11.0) % Eos % (Auto) (0.0-4.0) % Baso % (Auto) (0.2-1.2) % Sodium (136-145) mmol/L Potassium (3.5-5.1) mmol/L Chloride (98-107) mmol/L Carbon Dioxide (21-32) mmol/L Anion Gap (10-20) mmol/L BUN (7-18) mg/dL Creatinine (0.70-1.30) mg/dL Est Cr Clr Drug Dosing Estimated GFR (MDRD) Glucose (74-106) mg/dL Lactic Acid (0.4-2.0) mmol/L Calcium (8.5-10.1) mg/dL Corrected Calcium (8.5-10.1) mg/dL Magnesium (1.8-2.4) mg/dL Total Bilirubin (0.2-1.0) mg/dL AST (15-37) U/L ALT (16-63) U/L Alkaline Phosphatase (46-116) U/L C-Reactive Protein (<=0.9) mg/dL NT-Pro-B Natriuret Pep (<=125) pg/mL Total Protein (6.4-8.2) g/dL Albumin (3.4-5.0) g/dL Globulin Albumin/Globulin Ratio Urine Color Dark yellow H (YELLOW) Urine Appearance Turbid H (CLEAR) Urine pH 6.0 (5.0-8.0) Ur Specific Avery 1.015 Urine Protein 100 H (NEGATIVE) mg/dL Urine Glucose (UA) Negative (NEGATIVE) mg/dL Urine Ketones 15 H (NEGATIVE) mg/dL Urine Occult Blood Moderate H (NEGATIVE) Urine Nitrite Negative (NEGATIVE) Urine Bilirubin Small H (NEGATIVE) Urine Urobilinogen 0.2 (0.2) EU/dL Ur Leukocyte Esterase Moderate H (NEGATIVE) Urine RBC 5-10 H (NOT SEEN) /HPF Urine WBC Packed H (NOT SEEN) /HPF Ur Renal Epithelial Cell Few H (NEGATIVE) /HPF Amorphous Sediment Moderate Urine Bacteria Many H (NEGATIVE) /HPF Urine Mucus Moderate H (NEGATIVE) /LPF Meds: Medications Generic Name Dose Route Start Last Admin Trade Name Freq PRN Reason Stop Dose Admin Sodium Chloride 1,000 mls @ 1,000 mls/hr 09/16/19 21:03 09/16/19 21:11 Normal Saline IV 09/16/19 22:02 1,000 mls/hr .BOLUS ONE Administration Discontinued Medications Generic Name Dose Route Start Last Admin Trade Name Freq PRN Reason Stop Dose Admin Acetaminophen 1,000 mg 09/16/19 21:31 09/16/19 21:37 Tylenol Extra Strength PO 09/16/19 21:32 1,000 mg ONETIME ONE Administration Ceftriaxone Sodium 1 gm 09/16/19 20:58 09/16/19 21:07 Rocephin IVPUSH 09/16/19 20:59 1 gm STAT ONE Administration Hydromorphone HCl 1 mg 09/16/19 19:15 09/16/19 19:45 Dilaudid IVPUSH 09/16/19 19:16 Not Given ONETIME ONE Iopamidol 100 ml 09/16/19 20:58 09/16/19 20:59 Isovue-300 (61%) IVPUSH 09/16/19 20:59 100 ml ONETIME ONE Administration - Radiology Interpretation Free Text/Narrative:: Decreased perfusion with heterogenous appearance of superior pole of L kidney. Exophytic lesion within superior pole of L kidney. Small amount of perinephric fluid present along the L kidney and proximal ureter. No obvious free air or fluid in the abdomen. Departure - Departure Time of Disposition: 21:59 Disposition: DC/Tfer to Acute Hospital 02 Clinical Impression: UTI (urinary tract infection) - Discharge Information Referrals: Nevin Klein DO [Primary Care Provider] - Forms: ED Department Discharge - My Orders Last 24 Hours: My Active Orders 09/16/19 20:09 Abdomen Pelvis w Cont [CT] Stat 09/16/19 21:03 Sodium Chloride 0.9% [Normal Saline] 1,000 ml IV .BOLUS - Assessment/Plan Last 24 Hours: My Active Orders 09/16/19 20:09 Abdomen Pelvis w Cont [CT] Stat 09/16/19 21:03 Sodium Chloride 0.9% [Normal Saline] 1,000 ml IV .BOLUS Plan: Pt. will be transferred to [facility] in [place]. Pt. was given rocephin 1 gm IV in ER. He was given a 500ml fluid bolus in ER and started on maintenance fluids at 125ml/hr. Heart rate came down after small fluid bolus and tylenol. Dr. Freedman accepts the patient in transfer. He will be transported via [facility] ground ambulance.
[2019-09-16] MEDS ORDERED: HYDROmorphone 1 MG/ML Syringe IVPUSH ONE (19:15)
[2019-09-16 20:00] LABS: CHLORIDE,CL 97 mmol/L (98-107); SODIUM,NA 133 mmol/L (136-145)
[2019-09-16 20:04] LABS: ANION GAP 17.4 mmol/L (10-20)
[2019-09-16] MEDS ORDERED: Iopamidol 612 MG/ML 100 ML Bottle IVPUSH ONE (20:58)
[2019-09-16] MEDS ORDERED: cefTRIAXone 1 GM Vial IVPUSH ONE (20:58)
[2019-09-16] MEDS ORDERED: Sodium Chloride 0.9% 1,000 ML IV ONE (21:03)
[2019-09-16] MEDS ORDERED: Acetaminophen 500 MG Tab PO ONE (21:31)
--- NOTE | 2019-09-17 08:27 | CT ---
[id number] CT/CT Abdomen Pelvis W IV EXAM: CT Abdomen Pelvis W IV CLINICAL DATA: ABDOMINAL PAIN ELEVATED WHITE BLOOD CELL COUNT COMPARISON: NO PREVIOUS SIMILAR EXAM IS AVAILABLE FINDINGS: Abnormal linear soft tissue density at the right lung base posteriorly likely represents atelectasis and pleural thickening Multiple bilateral hepatic and renal cysts likely represent adult onset polycystic renal disease The aorta and pancreas are unremarkable There is no free air or free fluid There is no bowel distention. The pelvis shows no mass or adenopathy The appendix is normal There are degenerative changes of the lumbar spine. There is no hydronephrosis There is a 7 mm left adrenal nodule likely an adenoma. IMPRESSION: NO OBVIOUS SOURCE OF INFECTION POLYCYSTIC DISEASE CORRELATION WITH PREVIOUS STUDIES AND FOLLOW-UP STUDIES BOTH NEEDED Danyel Myers MD 09/17/19 0826 Thank you for allowing us to participate in the care of your patient.
== END 2019-09-16 22:48 | disposition short-term general hospital (02) ==
LOC: VM.ED 18:33
DX: N39.0 Urinary tract infection, site not specified (principal); I10 Essential (primary) hypertension; E03.9 Hypothyroidism, unspecified; F17.210 Nicotine dependence, cigarettes, uncomplicated; Z88.0 Allergy status to penicillin; Z91.018 Allergy to other foods; Z79.899 Other long term (current) drug therapy
CPT/HCPCS: 36415; 74177; 80053; 81001; 83605; 83735; 83880; 85025; 86140; 87040; 87086; 87088; 87186; 96361; 96374; 99284-GF; 99285-25; A9270-GY; J0696; J7030; Q9967